=== PATIENT | male | born 1950 | race Hispanic/Latino ===

== ENCOUNTER 2019-08-17 21:21 | Emergency (ER) | payer MEDICARE | END 2019-08-18 | disposition home or self-care (01) | LOC: ERS 21:21 | DX: M54.5 Low back pain (principal) | CPT/HCPCS: 99283 ==

== ENCOUNTER 2024-02-28 13:11 | Inpatient (IN) | payer MEDICARE ==
[2024-02-28 14:49] LABS: #Basophils 0.03 10x3/uL (0.0-0.2); %Basophils 0.5 % (0.0-1.0); %Eosinophils 1.4 % (0.0-10.0); %Lymphocytes 13.4 % (21.0-51.0); %Monocytes 11.2 % (0.0-10.0); Hemoglobin 12.4 g/dL (14.0-18.0); Mean Corpuscular HGB CONC 35.4 g/dL (32.0-36.0); Mean Corpuscular Hemoglobin 33.2 pg (27.0-31.0); Mean Corpuscular Volume 93.8 fL (78.0-98.0); Mean Platelet Volume 11.5 fL (7.4-10.4); Platelet Count 118 10x3/uL (130-400); RBC Distribution Width 13.1 % (11.5-14.5); Red Blood Cell (RBC) Count 3.73 mill/uL (4.70-6.10)
[2024-02-28 15:00] LABS: ALT (SGPT) 18 U/L (8-55); AST (SGOT) 24 U/L (5-34); Albumin 3.1 g/dL (3.4-4.8); Alkaline Phosphatase 45 U/L (40-110); Anion Gap 19 mmol/L (10-20); BUN (Urea Nitrogen) 103 mg/dL (8.4-25.7); Bilirubin, Total 0.9 mg/dL (0.2-1.2); CK (CPK) 149 U/L (30-200); Calc. Creatinine Clearance 0 mL/min (70-130); Calcium 8.8 mg/dL (7.8-10.44); Carbon Dioxide 15 mmol/L (23-31); Chloride 104 mmol/L (98-107); Estimated GFR 5; Globulin 2.8 g/dL (2.4-3.5); Glucose 180 mg/dL (83-110); Magnesium 2.2 mg/dL (1.6-2.6); Protein, Total 5.9 g/dL (5.8-8.1); Sodium 134 mmol/L (136-145)
[2024-02-28 15:05] LABS: Lipase 442 U/L (8-78)
[2024-02-28 15:30] LABS: Magnesium 2.2 mg/dL (1.6-2.6)
[2024-02-28 15:40] LABS: INR-International Normal Ratio 1.1; Prothrombin Time 14.3 sec (12.0-14.7)
[2024-02-28 15:41] LABS: PTT 29.7 sec (22.9-36.1); Platelet Adequacy Comment Platelets Decreased; Polychromasia SLIGHT = 2-3 cells HPF (0-2)
[2024-02-28] MEDS ORDERED: Thiamine HCl 200 MG/2 ML VIAL ONE (17:20)
[2024-02-28] MEDS ORDERED: Ondansetron PF 4 MG/2 ML Vial IVP PRN (18:24)
[2024-02-28] MEDS ORDERED: Calcium Carbonate 500 MG ChewTAB PO PRN (18:24)
[2024-02-28] MEDS ORDERED: Ondansetron ODT 4 MG TAB PO PRN (18:24)
[2024-02-28] MEDS ORDERED: Acetaminophen 325 MG TAB PO PRN (18:24)
[2024-02-28] MEDS ORDERED: Senokot S 8.6-50 MG TAB PO PRN (18:24)
[2024-02-28 18:36] LABS: Bacteria/HPF None Seen HPF (None Seen); Bilirubin Negative (Negative); Blood, Urine 2+ (Negative); CAUTI Indications for Culture Dysuria,urgency,freq; Clarity Clear (Clear); Glucose, Urine (Dipstick) Normal (Negative); Ketone, Urine 10 mg/dL (Negative); Leukocyte Negative Leu/uL (Negative); Nitrite Negative (Negative); Protein, Urine (Dipstick) Negative (Neg-Trace); RBC/HPF 21-50 HPF (0-3); Specific Gravity, Urine 1.013 (1.002-1.036); Squamous Epithelial 0-3 HPF (0-3); Urobilinogen Normal mg/dL (Less than 2); WBC/HPF 0-3 HPF (0-3)
[2024-02-28 18:37] LABS: Urine Culture Reflex No No
[2024-02-28] MEDS ORDERED: Labetalol HCl 100 MG/20 ML VIAL SLOW IVP PRN (19:00)
[2024-02-28] MEDS ORDERED: Electrolyte Replacement Protocol 1 EACH FS SCH (19:00)
[2024-02-28 20:25] LABS: Base Excess -10.4 mEq/L (-2.0 to +3.0); Calcium, Ionized (venous) 1.09 mmol/L (1.16-1.32); Chloride (VBG) 107 mmol/L (98-106); Hematocrit-VBG 38 % (42.0-52.0); Potassium (VBG) 3.76 mmol/L (3.70-5.30); Sodium 137 mmol/L (133-146); pH (venous) 7.319 (7.32-7.43)
[2024-02-28 20:26] LABS: Actual Bicarbonate (HCO3v) 14.2 mEq/L (22-28)
[2024-02-28] MEDS: Sodium Bicarbonate 150 MEQ in Sterile Water 1,000 ML IV SCH (21:17)
[2024-02-28] MEDS: Famotidine 20 MG TAB PO SCH (21:29)
[2024-02-28] MEDS: Tamsulosin HCl 0.4 MG CAP PO SCH (21:29)
[2024-02-28] MEDS: Cyanocobalamin (Vitamin B-12) 1,000 MCG TAB PO SCH (21:30)
[2024-02-28] MEDS: Multivit, Therapeutic 1 TAB PO SCH (21:30)
[2024-02-28] MEDS: Folic Acid 1 MG TAB PO SCH (21:30)
[2024-02-28] MEDS: Famotidine/PF 20 mg/2ml Vial SLOW IVP SCH (21:30)
[2024-02-28] MEDS: Thiamine HCl 200 MG/2 ML VIAL SLOW IVP SCH (21:31)
[2024-02-28] MEDS: Heparin 5,000 UNITS/ML VIAL SC SCH (21:32)
[2024-02-28 22:46] LABS: Protein, Urine Random Quant Less than 10 mg/dL (1-14); Sodium, Urine 37 mmol/L (Not Available)
[2024-02-28 23:12] VITALS: BMI 24.7
[2024-02-29 02:51] LABS: Actual Bicarbonate (HCO3a) 18.5 mEq/L (22-28); Base Excess (BEa) -3.9 mEq/L (-2.0 to +3.0); CO2 Tension 26.6 mmHg (35.0-45.0); Calcium, Ionized (arterial) 1.21 mmol/L (1.12-1.30); Carboxyhemoglobin (COHb) 0.6 gm% (0.0-3.0); Hematocrit-ABG 38 % (42.0-52.0); Hemoglobin (Hb) 12.9 g/dL (14.0-18.0); O2 Tension (PaO2), arterial 103.5 mmHg (> 70.0); Potassium - ABG Lab 3.58 mmol/L (3.70-5.30)
[2024-02-29 02:53] LABS: Puncture Site Right Radial artery
[2024-02-29 07:54] LABS: #Basophils Less than 0.03 10x3/uL (0.0-0.2); %Basophils 0.3 % (0.0-1.0); %Eosinophils 1.8 % (0.0-10.0); %Lymphocytes 20.6 % (21.0-51.0); %Monocytes 15.7 % (0.0-10.0); %Neutrophils 61.3 % (42.0-75.0); Hematocrit 35.8 % (42.0-52.0); Hemoglobin 12.8 g/dL (14.0-18.0); Mean Corpuscular HGB CONC 35.8 g/dL (32.0-36.0); Mean Corpuscular Hemoglobin 32.7 pg (27.0-31.0); Mean Corpuscular Volume 91.3 fL (78.0-98.0); Mean Platelet Volume 10.9 fL (7.4-10.4); Platelet Count 129 10x3/uL (130-400); RBC Distribution Width 12.5 % (11.5-14.5); Red Blood Cell (RBC) Count 3.92 mill/uL (4.70-6.10)
[2024-02-29 08:09] LABS: Iron 60 ug/dL (65-175); Iron Binding Capacity, Total 156 mcg/dL (261-462)
[2024-02-29 08:17] LABS: ALT (SGPT) 18 U/L (8-55); AST (SGOT) 25 U/L (5-34); Albumin 2.6 g/dL (3.4-4.8); Alkaline Phosphatase 43 U/L (40-110); Anion Gap 14 mmol/L (10-20); BUN (Urea Nitrogen) 31 mg/dL (8.4-25.7); Bilirubin, Total 0.8 mg/dL (0.2-1.2); Calc. Creatinine Clearance 41 mL/min (70-130); Calcium 8.7 mg/dL (7.8-10.44); Carbon Dioxide 22 mmol/L (23-31); Chloride 111 mmol/L (98-107); Estimated GFR 42; Globulin 2.9 g/dL (2.4-3.5); Glucose 127 mg/dL (83-110); Lipase 283 U/L (8-78); Potassium 3.7 mmol/L (3.5-5.1); Protein, Total 5.5 g/dL (5.8-8.1); Sodium 143 mmol/L (136-145)
[2024-02-29 08:27] LABS: PSA-Symptomatic (DIAGNOSTIC) 9.392 ng/mL (0-4.0)
[2024-02-29 09:02] LABS: Ferritin 607.46 ng/mL (22-322)
[2024-02-29] MEDS: Amlodipine 5 MG TAB PO SCH (15:33)
[2024-03-01 05:20] LABS: #Basophils Less than 0.03 10x3/uL (0.0-0.2); %Basophils 0.3 % (0.0-1.0); %Eosinophils 2.8 % (0.0-10.0); %Lymphocytes 17.8 % (21.0-51.0); %Monocytes 11.9 % (0.0-10.0); %Neutrophils 66.8 % (42.0-75.0); Hematocrit 36.5 % (42.0-52.0); Hemoglobin 12.5 g/dL (14.0-18.0); Mean Corpuscular HGB CONC 34.2 g/dL (32.0-36.0); Mean Corpuscular Hemoglobin 32.6 pg (27.0-31.0); Mean Corpuscular Volume 95.3 fL (78.0-98.0); Mean Platelet Volume 11.6 fL (7.4-10.4); Platelet Count 120 10x3/uL (130-400); RBC Distribution Width 12.7 % (11.5-14.5); Red Blood Cell (RBC) Count 3.83 mill/uL (4.70-6.10)
[2024-03-01 05:55] LABS: Calcium 8.6 mg/dL (7.8-10.44)
[2024-03-01 06:27] LABS: Anion Gap 13 mmol/L (10-20); BUN (Urea Nitrogen) 7 mg/dL (8.4-25.7); Calc. Creatinine Clearance 106 mL/min (70-130); Carbon Dioxide 23 mmol/L (23-31); Chloride 106 mmol/L (98-107); Estimated GFR 98; Glucose 123 mg/dL (83-110); Potassium 3.3 mmol/L (3.5-5.1); Sodium 139 mmol/L (136-145)
[2024-03-01] MEDS: Potassium Chloride 20 MEQ TAB PO SCH (07:34)
[2024-03-01] MEDS: Amlodipine 5 MG TAB PO SCH ×2 (07:35→12:40)
[2024-03-01 08:26] LABS: Magnesium 1.5 mg/dL (1.6-2.6); Phosphorus 1.4 mg/dL (2.3-4.7)
[2024-03-01] MEDS: Magnesium 2 GM/50 ML(in water) 2 GM in Premix 1 BAG IVPB SCH ×2 (08:57→10:08)
[2024-03-01] MEDS: Magnesium Sulfate In Water 4 GM in Premix 1 BAG IVPB SCH (09:46)
[2024-03-01] MEDS ORDERED: Potassium Phosphate 30 MMOL in Sodium Chloride 0.9% 100 ML IVPB SCH (10:00)
[2024-03-01] MEDS ORDERED: Potassium Phosphate 15 MMOL in Sodium Chloride 0.9% 100 ML IVPB SCH (10:00)
[2024-03-01] MEDS: Potassium Phosphate 30 MMOL in Sodium Chloride 0.9% 250 ML 250 ML IVPB SCH (11:02)
[2024-03-01] MEDS: Lorazepam 2 MG/ML VIAL SLOW IVP SCH (23:13)
[2024-03-02 04:34] LABS: #Basophils 0.04 10x3/uL (0.0-0.2); %Basophils 0.5 % (0.0-1.0); %Eosinophils 2.5 % (0.0-10.0); %Lymphocytes 13.8 % (21.0-51.0); %Monocytes 10.3 % (0.0-10.0); %Neutrophils 72.3 % (42.0-75.0); Hematocrit 35.7 % (42.0-52.0); Hemoglobin 12.5 g/dL (14.0-18.0); Mean Corpuscular Hemoglobin 32.6 pg (27.0-31.0); Mean Platelet Volume 10.7 fL (7.4-10.4); Platelet Count 150 10x3/uL (130-400); RBC Distribution Width 12.2 % (11.5-14.5); Red Blood Cell (RBC) Count 3.84 mill/uL (4.70-6.10)
[2024-03-02 05:13] LABS: Anion Gap 10 mmol/L (10-20); BUN (Urea Nitrogen) 4 mg/dL (8.4-25.7); Calc. Creatinine Clearance 101 mL/min (70-130); Calcium 8.3 mg/dL (7.8-10.44); Carbon Dioxide 25 mmol/L (23-31); Chloride 102 mmol/L (98-107); Estimated GFR 97; Glucose 147 mg/dL (83-110); Magnesium 1.7 mg/dL (1.6-2.6); Phosphorus 1.4 mg/dL (2.3-4.7); Potassium 3.5 mmol/L (3.5-5.1); Sodium 133 mmol/L (136-145)
[2024-03-02] MEDS ORDERED: Electrolyte Replacement Protocol 1 EACH FS SCH (05:30)
[2024-03-02] MEDS: PHOS-NAK 1 PKT PACK PO SCH (06:35)
[2024-03-02] MEDS: Potassium Phosphate 30 MMOL in Sodium Chloride 0.9% 250 ML 250 ML IVPB SCH (07:20)
[2024-03-02] MEDS ORDERED: Potassium Chloride 20 MEQ TAB PO SCH (08:00)
[2024-03-02] MEDS: Magnesium 2 GM/50 ML(in water) 2 GM in Premix 1 BAG IVPB SCH (11:06)
[2024-03-02] MEDS: Amlodipine 5 MG TAB PO SCH (11:07)
[2024-03-02] MEDS ORDERED: Electrolyte Replacement Protocol FS PRN (12:30)
[2024-03-02] MEDS: Phenazopyridine HCl 100 MG TAB PO PRN (13:21)
[2024-03-02] MEDS: Thiamine 100 MG TAB PO SCH (22:29)
[2024-03-03 05:50] LABS: Anion Gap 13 mmol/L (10-20); BUN (Urea Nitrogen) Less than 4 mg/dL (8.4-25.7); Calc. Creatinine Clearance 98 mL/min (70-130); Calcium 8.5 mg/dL (7.8-10.44); Carbon Dioxide 23 mmol/L (23-31); Chloride 101 mmol/L (98-107); Estimated GFR 96; Glucose 140 mg/dL (83-110); Magnesium 1.8 mg/dL (1.6-2.6); Potassium 3.8 mmol/L (3.5-5.1); Sodium 133 mmol/L (136-145)
[2024-03-03 08:00] VITALS: BP 133/74; TEMP 98.7
[2024-03-03] MEDS: Magnesium 2 GM/50 ML(in water) 2 GM in Premix 1 BAG IVPB SCH (10:12)
[2024-03-03] MEDS: PHOS-NAK 1 PKT PACK PO SCH (10:13)
== END 2024-03-03 13:35 | DRG 683 ==
LOC: ERS 13:11 → 2SW 17:17 → MSONC 03-01 15:50
PROVIDERS: ADMIT Internal Medicine; ATTEND Internal Medicine
PROC: 4A033R1 Measurement of Arterial Saturation, Peripheral, Percutaneous Approach (ICD-10-PCS; principal; 2024-02-29)
DX: N17.9 Acute kidney failure, unspecified (principal); E87.1 Hypo-osmolality and hyponatremia; E87.20 Acidosis, unspecified; N13.9 Obstructive and reflux uropathy, unspecified; F10.20 Alcohol dependence, uncomplicated; N13.30 Unspecified hydronephrosis; I10 Essential (primary) hypertension; N32.89 Other specified disorders of bladder; N40.1 Benign prostatic hyperplasia with lower urinary tract symptoms; D69.6 Thrombocytopenia, unspecified; D64.9 Anemia, unspecified; E83.42 Hypomagnesemia; E83.39 Other disorders of phosphorus metabolism; E87.6 Hypokalemia
CPT/HCPCS: 36415; 36416; 36600; 51702; 70450; 71045; 74176; 80048; 80053; 81001; 82010; 82140; 82550; 82570; 82728; 82805; 83036; 83540; 83550; 83605; 83690; 83735; 83880; 84100; 84153; 84156; 84300; 85025; 85610; 85730; 93005; 93306; 94760; 96374; 97139; A4217; J1644; J2060; J3411; J3475; J7050

== ENCOUNTER 2024-03-15 13:59 | Inpatient (IN) | payer MEDICARE ==
[2024-03-15 14:52] LABS: Hematocrit 31.5 % (42.0-52.0); Hemoglobin 11.2 g/dL (14.0-18.0); Mean Corpuscular HGB CONC 35.6 g/dL (32.0-36.0); Mean Corpuscular Hemoglobin 32.5 pg (27.0-31.0); Mean Corpuscular Volume 91.3 fL (78.0-98.0); Platelet Count 297 10x3/uL (130-400); RBC Distribution Width 12.9 % (11.5-14.5); Red Blood Cell (RBC) Count 3.45 mill/uL (4.70-6.10)
[2024-03-15 15:04] LABS: Acetaminophen Less than 10 mcg/mL (Less than 10); Alcohol Less than 10.0 mg/dL (Less than 10); Magnesium 2.1 mg/dL (1.6-2.6); Salicylate Less than 8.0 mg/dL (Less than 8.0)
[2024-03-15 15:05] LABS: ALT (SGPT) 28 U/L (8-55); AST (SGOT) 86 U/L (5-34); Albumin 2.1 g/dL (3.4-4.8); Alkaline Phosphatase 129 U/L (40-110); Anion Gap 18 mmol/L (10-20); BUN (Urea Nitrogen) 85 mg/dL (8.4-25.7); Calc. Creatinine Clearance 0 mL/min (70-130); Calcium 9.2 mg/dL (7.8-10.44); Carbon Dioxide 22 mmol/L (23-31); Chloride 101 mmol/L (98-107); Estimated GFR 8; Globulin 4.2 g/dL (2.4-3.5); Glucose 162 mg/dL (83-110); Potassium 3.3 mmol/L (3.5-5.1); Protein, Total 6.3 g/dL (5.8-8.1); Sodium 138 mmol/L (136-145)
[2024-03-15 15:10] LABS: Band 13 % (5-11); Burr Cells SLIGHT = 2-5 cells HPF (0-1); Lymphocytes 1 % (21-51); Monocytes 3 % (0-10); Neutrophil 82 % (42-75); Platelet Adequacy Comment Platelets Normal; Polychromasia SLIGHT = 2-3 cells HPF (0-2); Reactive Lymphocytes 1 % (0-10); Smudge Cells 3.9 %; Target Cells SLIGHT = 2-5 cells HPF (0-1)
[2024-03-15 15:49] LABS: Amphetamine Not Detected (NotDetected); Barbiturates Screen Not Detected (NotDetected); Benzodiazepine Screen Detected (NotDetected); Cocaine Metabolite Screen Not Detected (NotDetected); Methadone Not Detected (NotDetected); Methamphetamine Not Detected (NotDetected); Opiate Screen Not Detected (NotDetected); Oxycodone Screen Not Detected (NotDetected); Phencyclidine (PCP) Not Detected (NotDetected); THC/Cannabinoid Screen Not Detected (NotDetected); Tricyclic Screen Not Detected (NotDetected)
[2024-03-15 16:00] LABS: Bacteria/HPF 2+ HPF (None Seen); Bilirubin Negative (Negative); Blood, Urine 3+ (Negative); CAUTI Indications for Culture Alt mental st,lethar; Clarity Turbid (Clear); Glucose, Urine (Dipstick) Normal (Negative); Ketone, Urine Negative (Negative); Leukocyte 500 Leu/uL (Negative); Nitrite Negative (Negative); Protein, Urine (Dipstick) 20 mg/dL (Neg-Trace); Specific Gravity, Urine 1.006 (1.002-1.036); Squamous Epithelial None Seen HPF (0-3); Urobilinogen Normal mg/dL (Less than 2); WBC/HPF 21-50 HPF (0-3)
[2024-03-15 16:06] LABS: Urine Culture Reflex Yes Yes
[2024-03-15] MEDS ORDERED: Sodium Chloride 0.9% 100 ML ONE (16:18)
[2024-03-15] MEDS ORDERED: cefTRIAXone (ROCEPHIN) 2 GM VIAL ONE (16:18)
[2024-03-15 16:55] LABS: Actual Bicarbonate (HCO3a) 21.6 mEq/L (22-28); Analyzer IN Cardio ER; Base Excess (BEa) -2.1 mEq/L (-2.0 to +3.0); CO2 Tension 33.1 mmHg (35.0-45.0); Calcium, Ionized (arterial) 1.16 mmol/L (1.12-1.30); Carboxyhemoglobin (COHb) 0.6 gm% (0.0-3.0); Hematocrit-ABG 32 % (42.0-52.0); Hemoglobin (Hb) 10.8 g/dL (14.0-18.0); O2 Tension (PaO2), arterial 85.2 mmHg (> 70.0); Potassium - ABG Lab 2.93 mmol/L (3.70-5.30); pH, Arterial 7.432 (7.35-7.45)
[2024-03-15 16:58] LABS: Puncture Site Right Radial artery
[2024-03-15 16:59] LABS: ALV-art Gradient 23.155 mmHg (0-20)
[2024-03-15] MEDS ORDERED: Ondansetron ODT 4 MG TAB PO PRN (19:06)
[2024-03-15] MEDS ORDERED: traMADol HCl 50 MG TAB PO PRN (19:06)
[2024-03-15] MEDS ORDERED: Ondansetron PF 4 MG/2 ML Vial IVP PRN (19:06)
[2024-03-15] MEDS ORDERED: Acetaminophen 325 MG TAB PO PRN (19:06)
[2024-03-15 20:45] VITALS: BMI 22.4
[2024-03-15 21:26] LABS: #Basophils 0.05 10x3/uL (0.0-0.2); %Basophils 0.2 % (0.0-1.0); %Eosinophils 0.2 % (0.0-10.0); %Lymphocytes 6.2 % (21.0-51.0); %Monocytes 7.2 % (0.0-10.0); %Neutrophils 85.4 % (42.0-75.0); Hematocrit 30.9 % (42.0-52.0); Hemoglobin 10.9 g/dL (14.0-18.0); Mean Corpuscular HGB CONC 35.3 g/dL (32.0-36.0); Mean Corpuscular Hemoglobin 31.9 pg (27.0-31.0); Mean Corpuscular Volume 90.4 fL (78.0-98.0); Platelet Count 271 10x3/uL (130-400); RBC Distribution Width 12.7 % (11.5-14.5); Red Blood Cell (RBC) Count 3.42 mill/uL (4.70-6.10)
[2024-03-15] MEDS: Heparin 5,000 UNITS/ML VIAL SC SCH (23:15)
[2024-03-15] MEDS: Tamsulosin HCl 0.4 MG CAP PO SCH (23:16)
[2024-03-16 06:06] LABS: #Basophils 0.04 10x3/uL (0.0-0.2); %Basophils 0.2 % (0.0-1.0); %Eosinophils 0.2 % (0.0-10.0); %Lymphocytes 5.9 % (21.0-51.0); %Neutrophils 83.9 % (42.0-75.0); Hematocrit 31.1 % (42.0-52.0); Hemoglobin 11.1 g/dL (14.0-18.0); Mean Corpuscular HGB CONC 35.7 g/dL (32.0-36.0); Mean Corpuscular Hemoglobin 31.7 pg (27.0-31.0); Mean Corpuscular Volume 88.9 fL (78.0-98.0); Mean Platelet Volume 10.5 fL (7.4-10.4); Platelet Count 306 10x3/uL (130-400)
[2024-03-16 08:48] LABS: Magnesium 1.8 mg/dL (1.6-2.6); Phosphorus 2.7 mg/dL (2.3-4.7)
[2024-03-16 09:05] LABS: ALT (SGPT) 34 U/L (8-55); AST (SGOT) 107 U/L (5-34); Alkaline Phosphatase 114 U/L (40-110); Anion Gap 19 mmol/L (10-20); BUN (Urea Nitrogen) 55 mg/dL (8.4-25.7); Bilirubin, Total 0.5 mg/dL (0.2-1.2); Calc. Creatinine Clearance 24 mL/min (70-130); Carbon Dioxide 19 mmol/L (23-31); Chloride 108 mmol/L (98-107); Estimated GFR 26; Globulin 3.8 g/dL (2.4-3.5); Glucose 144 mg/dL (83-110); Potassium 3.1 mmol/L (3.5-5.1); Protein, Total 5.8 g/dL (5.8-8.1); Sodium 143 mmol/L (136-145)
[2024-03-16] MEDS: Thiamine 100 MG TAB PO SCH (09:22)
[2024-03-16] MEDS: Finasteride 5 MG TAB PO SCH (09:22)
[2024-03-16] MEDS: Famotidine 20 MG TAB PO SCH (09:22)
[2024-03-16] MEDS: Cyanocobalamin (Vitamin B-12) 1,000 MCG TAB PO SCH (09:22)
[2024-03-16] MEDS: Lactated Ringer's 1,000 ML IV SCH (09:22)
[2024-03-16] MEDS: Folic Acid 1 MG TAB PO SCH (09:22)
[2024-03-16] MEDS: Potassium Chloride 20 MEQ TAB PO SCH (09:45)
[2024-03-16 10:31] VITALS: BMI 22.4
[2024-03-16] MEDS ORDERED: traMADol HCl 50 MG TAB PO PRN (11:21)
[2024-03-16] MEDS ORDERED: hydrOXYzine 25 MG TAB PO PRN (12:18)
[2024-03-16] MEDS: cefTRIAXone\\ROCEPHIN 2 GM in Sodium Chloride 0.9% 100 ML IVPB SCH (15:18)
[2024-03-17 04:25] LABS: Albumin 1.7 g/dL (3.4-4.8); Anion Gap 11 mmol/L (10-20); BUN (Urea Nitrogen) 20 mg/dL (8.4-25.7); BUN/Creatinine Ratio 23.53; Calc. Creatinine Clearance 71 mL/min (70-130); Calcium 8.2 mg/dL (7.8-10.44); Carbon Dioxide 23 mmol/L (23-31); Chloride 109 mmol/L (98-107); Estimated GFR 91; Glucose 146 mg/dL (83-110); Magnesium 1.3 mg/dL (1.6-2.6); Phosphorus 1.5 mg/dL (2.3-4.7); Potassium 3.2 mmol/L (3.5-5.1); Sodium 140 mmol/L (136-145)
[2024-03-17] MEDS: Sodium Phosphate 15 MMOL in Sodium Chloride 0.9% 250 ML 250 ML IVPB SCH (06:55)
[2024-03-17] MEDS ORDERED: Electrolyte Replacement Protocol 1 EACH FS PRN (07:41)
[2024-03-17] MEDS ORDERED: Electrolyte Replacement Protocol FS PRN (07:45)
[2024-03-17] MEDS ORDERED: Folic Acid 1 MG TAB PO SCH (09:00)
[2024-03-17] MEDS: Thiamine 100 MG TAB PO SCH (09:42)
[2024-03-17] MEDS: Tamsulosin HCl 0.4 MG CAP PO SCH (09:43)
[2024-03-17] MEDS: Potassium Chloride 20 MEQ TAB PO SCH ×2 (09:43→18:59)
[2024-03-17] MEDS: Mirtazapine 15 MG TAB PO SCH (09:43)
[2024-03-17] MEDS: Amlodipine 5 MG TAB PO SCH (09:43)
[2024-03-17] MEDS: Magnesium Sulfate In Water 4 GM in Premix 1 BAG IVPB SCH (10:16)
[2024-03-17] MEDS: PHOS-NAK 1 PKT PACK PO SCH (10:31)
[2024-03-17 15:21] LABS: Potassium 3.1 mmol/L (3.5-5.1)
[2024-03-17] MEDS: Albumin 25% 25 GM (100 mL) BOT IVPB SCH (15:36)
[2024-03-17 17:31] VITALS: BP 145/68; TEMP 98.1
[2024-03-17] MEDS: Potassium Phosphate 30 MMOL in Sodium Chloride 0.9% 250 ML 250 ML IVPB SCH (17:47)
[2024-03-18] MEDS ORDERED: FLU (Fluad Triv) TS24-25 (65UP)/MF59C/PF 45 MCG/0.5 ML Syringe IM ONE (09:00)
== END 2024-03-17 20:06 | disposition home or self-care (01) | DRG 698 ==
LOC: ERS 13:59 → 2NO 17:37
PROVIDERS: ADMIT Internal Medicine; ATTEND Internal Medicine
PROC: 4A033R1 Measurement of Arterial Saturation, Peripheral, Percutaneous Approach (ICD-10-PCS; principal; 2024-03-15)
PROC: 3E03329 Introduction of Other Anti-infective into Peripheral Vein, Percutaneous Approach (ICD-10-PCS; 2024-03-15)
PROC: 30233J1 Transfusion of Nonautologous Serum Albumin into Peripheral Vein, Percutaneous Approach (ICD-10-PCS; 2024-03-17)
DX: T83.011A Breakdown (mechanical) of indwelling urethral catheter, initial encounter (principal); A41.9 Sepsis, unspecified organism; E87.20 Acidosis, unspecified; N17.9 Acute kidney failure, unspecified; N32.0 Bladder-neck obstruction; I10 Essential (primary) hypertension; Z79.899 Other long term (current) drug therapy; D64.9 Anemia, unspecified; Z79.01 Long term (current) use of anticoagulants; E87.6 Hypokalemia; E83.42 Hypomagnesemia
CPT/HCPCS: 36415; 36416; 36600; 70450; 71045; 74176; 80053; 80069; 80306; 80307; 81001; 82805; 83605; 83735; 84100; 84145; 85025; 87040; 87086; 93005; 96361; 96365; J0696; J1644; J3475; J7050; J7120; P9047